=== PATIENT | male | born 1995 | race Caucasian/White ===

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

== ENCOUNTER 2017-05-12 09:43 | Emergency (ER) | payer SELFPAY ==
[~2017-05-12] VITALS: Ht 172.7 cm; Wt 60.0 kg
[~2017-05-12 09:43] MED LIST changes: -CEPH500C3 PO; +FLUO20CA4 PO; -LORTA5 PO
[2017-05-12 09:45] VITALS: BP 120/70; PULSE 60; RESP 20; TEMP 98.5; O2SAT 96
[2017-05-12] MEDS ORDERED: SODIUM CHLORIDE 0.9% FLUSH 10 ML FLUSH IVF PRN (10:30)
[2017-05-12] MEDS ORDERED: cefTRIAXone 250 MG VIAL IM ONE (10:45)
[2017-05-12] MEDS ORDERED: AZITHROMYCIN 250 MG TAB PO ONE (10:45)
[2017-05-12] MEDS ORDERED: ONDANSETRON ODT 4 MG TAB PO/SL ONE (10:45)
[2017-05-12] MEDS ORDERED: LIDOCAINE HCL 1% 50 ML VIAL XX ONE (10:45)
[2017-05-12] MEDS ORDERED: PENICILLIN G BENZATHINE 2,400,000 UNITS/4 ML SYRINGE IM ONE (10:45)
--- NOTE | 2017-05-12 10:50 | PD ---
HPI Chief Complaint: Complaint Time Seen by Provider: 10:15 Travel History International Travel<30 days: No Contact w/Intl Traveler<30days: No Traveled to known affect area: No History of Present Illness HPI Patient is a 21-year-old male presenting to emergency for evaluation of a lesion to his penis. Patient states it's been there for 3 days, he denies any pain but states it feels a little sore area he denies any discharge from his penis, dysuria. He states that he has had unprotected sex with the same partner for the last several months, the relationship is not monogamous. He has no other complaints at this time. PFSH Past Medical History Hx Anticoagulant Therapy: No Bipolar Disorder: Yes Anxiety: Yes Depression: Yes Cancer: No Cardiovascular Problems: Yes (MVP) High Cholesterol: No Chemotherapy: No Cerebrovascular Accident: No Developmental Delay: No Diabetes: No Diminished Hearing: No Endocrine: No Gastrointestinal Disorders: No Genitourinary: No Headaches: No Immune Disorder: No Implanted Vascular Access Dvce: Yes Musculoskeletal: No Neurologic: No Psychiatric: Yes (Hx of treatment for Bipolar Disorder, Psychotic DO and PTSD) Reproductive: No Respiratory: No Immunizations Current: Yes PNEUMOCCOCAL Vaccine (Year): 1 Past Surgical History Abdominal Surgery: No AICD: No Arteriovenous Shunt: No Body Medical Devices: METAL IN LEFT ARM Cardiac Surgery: No Ear Surgery: No Endocrine Surgery: No Eye Surgery: No Genitourinary Surgery: No Gynecologic Surgery: No Insulin Pump: No Joint Replacement: No Oral Surgery: No Pacemaker: No Thoracic Surgery: No Social History Alcohol Use: No Tobacco Use: No (3/4 PPD) Substance Use: Yes ( Marijuana, Ecstacy) Allergies-Medications (Allergen,Severity, Reaction): Coded Allergies: No Known Allergies (Verified , 11/23/16) Reported Meds & Prescriptions Reported Meds & Active Scripts Active No Active Prescriptions or Reported Medications Review of Systems Except as stated in HPI: all other systems reviewed are Neg Skin: Positive Lesions Physical Exam Narrative GENERAL: SKIN: Warm and dry. HEAD: Normocephalic. EYES: No scleral icterus. No injection or drainage. NECK: Supple, trachea midline. No JVD or lymphadenopathy. CARDIOVASCULAR: Regular rate and rhythm without murmurs, gallops, or rubs. RESPIRATORY: Breath sounds equal bilaterally. No accessory muscle use. GASTROINTESTINAL: Abdomen soft, non-tender, nondistended. MUSCULOSKELETAL: No cyanosis, or edema. GENITOURINARY: Circumcised. Testes descended bilaterally without evidence of rotation. 3mm circular lesion to shaft of penis, no erythema. Nontender, no induration No urethral discharge. BACK: Nontender without obvious deformity. No CVA tenderness. Data Data Last Documented VS Vital Signs Date Time Temp Pulse Resp B/P Pulse Ox O2 Delivery O2 Flow Rate FiO2 05/12/17 09:45 98.5 60 20 120/70 96 Room Air Orders Ua Includes Microscopic (05/12/17 10:17) Gc And Chlamydia Pcr (05/12/17 10:17) Sodium Chloride 0.9% Flush (Ns Flush) (05/12/17 10:30) Rapid Plasmin Reagin Screen (05/12/17 10:17) Herpes Simplex Virus Culture (05/12/17 10:17) Penicillin G Benzathine Inj (Bicillin L- (05/12/17 10:45) Azithromycin (Zithromax) (05/12/17 10:45) Ceftriaxone Inj (Rocephin Inj) (05/12/17 10:45) Ondansetron Odt (Zofran Odt) (05/12/17 10:45) Lidocaine 1% Inj (50 Ml) (Xylocaine 1% I (05/12/17 10:45) Labs Laboratory Tests Test 05/12/17 11:15 Urine Color YELLOW Urine Turbidity CLEAR Urine pH 7.0 Urine Specific [place] 1.027 Urine Protein TRACE mg/dL Urine Glucose (UA) NEG mg/dL Urine Ketones NEG mg/dL Urine Occult Blood NEG Urine Nitrite NEG Urine Bilirubin NEG Urine Urobilinogen LESS THAN 2.0 MG/DL Urine Leukocyte Esterase NEG Urine RBC 1 /hpf Urine WBC 3 /hpf Urine Hyaline Casts 1 /lpf Urine Mucus FEW /lpf MDM Medical Decision Making Medical Screen Exam Complete: Yes Emergency Medical Condition: Yes Interpretation(s) Laboratory Tests Test 05/12/17 11:15 Urine Color YELLOW Urine Turbidity CLEAR Urine pH 7.0 Urine Specific [place] 1.027 Urine Protein TRACE mg/dL Urine Glucose (UA) NEG mg/dL Urine Ketones NEG mg/dL Urine Occult Blood NEG Urine Nitrite NEG Urine Bilirubin NEG Urine Urobilinogen LESS THAN 2.0 MG/DL Urine Leukocyte Esterase NEG Urine RBC 1 /hpf Urine WBC 3 /hpf Urine Hyaline Casts 1 /lpf Urine Mucus FEW /lpf Vital Signs Date Time Temp Pulse Resp B/P Pulse Ox O2 Delivery O2 Flow Rate FiO2 05/12/17 09:45 98.5 60 20 120/70 96 Room Air Differential Diagnosis Cancroid versus syphilis versus chlamydia versus gonorrhea versus Narrative Course Patient is a 21-year-old male presenting with 3 days of a lesion to his penis. He has engaged in unprotected sex, relationship is not monogamous. Vital signs are stable. Lesion appears consistent with syphilis, RPR, UA, GC, chlamydia ordered and pending. Patient will be treated empirically at this time with penicillin G benzathine 2.4 M units, Rocephin, azithromycin. Patient is encouraged to follow up with [facility] for further STD screening. He is encouraged to avoid sexual contact with partner until he is notified of test results when they are available. He was advised that he would need to notify partner if his test results are positive. Urinalysis is unremarkable, patient is stable for discharge. Diagnosis Primary Impression: Lesion of penis Additional Impression: Possible exposure to STD Referrals: [facility] Dept. Patient Instructions: General Instructions Additional Instructions: Use barrier protection/condoms when engaging in sexual intercourse to prevent transmission of sexually transmitted diseases Avoid sexual intercourse until you know your lab results Follow-up at the [facility] for further STD screening Return to emergency department for any new or worsening symptoms Med/Other Pt SpecificInfo: No Change to Meds Scripts No Active Prescriptions or Reported Meds Disposition: 01 DISCHARGE HOME Condition: Stable Leigh Schrader May 12, 2017 10:50
[2017-05-12 11:31] LABS: BLOOD, URINE NEG (NEG); GLUCOSE,URINE NEG (NEG); HYALINE CAST, URINE 1 /lpf (RARE); KETONE, URINE NEG (NEG); MUCUS URINE FEW /lpf (OCC); NITRITE,URINE NEG (NEG); URINE COLOR YELLOW (YELLW/STRAW)
[2017-05-12 15:50] LABS: CHLAMYDIA PCR NOT DETECTED (NOT DETECT); NEISSERIA PCR NOT DETECTED (NOT DETECT)
== END 2017-05-12 12:11 | disposition home or self-care (01) ==
LOC: NEPD 09:43
DX: L98.8 Other specified disorders of the skin and subcutaneous tissue (principal); Z20.2 Contact with and (suspected) exposure to infections with a predominantly sexual mode of transmission; Z86.59 Personal history of other mental and behavioral disorders; Z86.79 Personal history of other diseases of the circulatory system
CPT/HCPCS: 81001; 86592; 87255; 87491; 87591; 96372; 99284; J0561; J0696

== ENCOUNTER 2017-08-11 12:18 | Emergency (ER) | payer OTHER ==
[~2017-08-11] VITALS: Ht 172.7 cm; Wt 55.0 kg
[2017-08-11 12:20] VITALS: BP 118/71; PULSE 69; RESP 14; TEMP 98.4; O2SAT 98
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
[2017-08-11] MEDS ORDERED: BACT800T5 PO (14:44)
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
[2017-08-11 14:54] VITALS: BP 109/76; TEMP 97.8
== END 2017-08-11 14:55 | disposition home or self-care (01) ==
LOC: NEPD 12:18
DX: R23.4 Changes in skin texture (principal); M79.602 Pain in left arm; F31.9 Bipolar disorder, unspecified; F43.10 Post-traumatic stress disorder, unspecified
CPT/HCPCS: 99283

== ENCOUNTER 2017-08-21 10:51 | Emergency (ER) | payer OTHER ==
[~2017-08-21] VITALS: Ht 172.7 cm; Wt 58.0 kg
[~2017-08-21 10:51] MED LIST changes: +BACT800T5 PO; -FLUO20CA4 PO
[2017-08-21 11:04] VITALS: BP 123/59; PULSE 55; RESP 16; TEMP 98.6; O2SAT 100
[2017-08-21 11:42] LABS: AUTOMATED NEUTROPHIL # 2.3 TH/MM3 (1.8-7.7); BASOPHIL % 0.5 % (0.0-2.0); EOSINOPHIL # 0.1 TH/MM3 (0-0.4); EOSINOPHIL % 3.3 % (0.0-4.0); HEMATOCRIT 46.1 % (39.0-51.0); HEMO FLAGS DIFF FINAL; LYMPH % 30.9 % (9.0-44.0); LYMPHOCYTE # 1.3 TH/MM3 (1.0-4.8); MEAN CELL VOLUME 92.8 FL (80.0-100.0); MEAN CORPUSCULAR HEMOGLOBIN 31.6 PG (27.0-34.0); MONO % 11.7 % (0.0-8.0); NEUT % 53.6 % (16.0-70.0); PLATELET COUNT 124 TH/MM3 (150-450); RED BLOOD COUNT 4.96 MIL/MM3 (4.50-5.90); RED CELL DISTRIBUTION WIDTH 12.7 % (11.6-17.2); WHITE BLOOD COUNT 4.2 TH/MM3 (4.0-11.0)
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
[2017-08-21 12:06] LABS: ALT (GPT) 25 U/L (9-52); ANION GAP 6 MEQ/L (5-15); AST (GOT) 15 U/L (15-39); BLOOD UREA NITROGEN 13 MG/DL (7-18); CHLORIDE 108 MEQ/L (98-107); GLOMERULAR FILTRATION RATE 118 ML/MIN (>89); POTASSIUM 3.8 MEQ/L (3.5-5.1); SODIUM (NA) 140 MEQ/L (136-145)
[2017-08-21 12:08] LABS: ALKALINE PHOSPHATASE 49 U/L (45-117); TOTAL BILIRUBIN ADULT 0.7 MG/DL (0.2-1.0)
[2017-08-21 12:11] LABS: ALCOHOL LESS THAN 3 MG/DL (0-5)
--- NOTE | 2017-08-21 12:40 | PD ---
History of Present Illness Chief Complaint: Psychiatric Symptoms Time Seen by Provider: 12:30 Travel History International Travel<30 Days: No Contact w/Intl Traveler<30days: No Known affected area: No Legal Status Legal Status: Ex Parte History of Present Illness: 22-year-old male brought in under an ex parte order which contains no specific information regarding the patient. Patient denies suicidal or homicidal ideation, plan or intent. He has no psychotic symptoms and his cognition is intact. He is verbally ness for safety and he is competent to do so. He would like to see an outpatient therapist because he has having trouble getting along with his brother and he left his home. He is looking for a place to live. Right now he stays with friends. He does have a 50-55 hour a week job with [employer]. This physician does not feel he meets criteria for Brown act or inpatient psychiatric hospitalization. [facility] Past Medical History Hx Anticoagulant Therapy: No Bipolar Disorder: Yes Anxiety: Yes Depression: Yes Heart Rhythm Problems: Yes (RECENT VENTRICULAR PROBLEM) Cancer: No Cardiovascular Problems: Yes (MVP) High Cholesterol: No Chemotherapy: No Cerebrovascular Accident: No Developmental Delay: No Diabetes: No Diminished Hearing: No Endocrine: No Gastrointestinal Disorders: No Genitourinary: No Headaches: No Immune Disorder: No Implanted Vascular Access Dvce: Yes Musculoskeletal: No Neurologic: No Psychiatric: Yes (Hx of treatment for Bipolar Disorder, Psychotic DO and PTSD) Reproductive: No Respiratory: No Immunizations Current: Yes Tetanus Vaccination: < 5 Years Influenza Vaccination: Yes PNEUMOCCOCAL Vaccine (Year): 1 Past Surgical History Abdominal Surgery: No AICD: No Arteriovenous Shunt: No Body Medical Devices: METAL IN LEFT ARM Cardiac Surgery: No Ear Surgery: No Endocrine Surgery: No Eye Surgery: No Genitourinary Surgery: No Gynecologic Surgery: No Insulin Pump: No Joint Replacement: No Oral Surgery: No Pacemaker: No Thoracic Surgery: No Other Surgery: Yes (unknown) Psychiatric History Psychiatric History Hx Psychiatric Treatment: Pt has a history of inpatient psychiatric hospitalizations at [facility] and [facility] with last visit occurring in March of 2014. He denied any current outpatient psychiatric follow up but states he does see a counselor at [facility]. He wavers in his decision on whether he would like to be linked with a psychiatrist. Diagnostic history reported to include Bipolar Disorder and Psychotic Disorder. This physician sees no significant clinical objective evidence of bipolar disorder at this time. History of Inpatient Treatment: Yes Guns or firearms in home: No Social History Hx Alcohol Use: No Hx Tobacco Use: No (QUIT 8 MONTHS AGO) Hx Substance Use: No ( Marijuana, Ecstacy in the past ) Substance Use Type: Marijuana, Ecstasy, Other Other Substances Used: HX OF K2 ABUSE Hx of Substance Use Treatment: No Allergies-Medications (Allergen,Severity, Reaction): Coded Allergies: No Known Allergies (Verified , 08/21/17) Reported Meds & Prescriptions Reported Meds & Active Scripts Active No Active Prescriptions or Reported Medications Review of Systems Except as stated in HPI: all other systems reviewed are Neg Mental Status Examination Appearance: Appropriate Consciousness: Alert Orientation: x4 Motor Activity: Normal gait Speech: Unremarkable Language: Adequate Fund of Knowledge: Adequate Attention and Concentration: Adequate Memory: Unremarkable Mood: Appropriate Affect: Appropriate Thought Process & Associations: Intact Thought Content: Appropriate Hallucination Type: None Delusion Type: None Suicidal Ideation: No Suicidal Plan: No Suicidal Intention: No Homicidal Ideation: No Homicidal Plan: No Homicidal Intention: No Insight: Adequate Judgment: Adequate MDM Medical Decision Making Medical Record Reviewed: Yes Assessment/Plan Patient interviewed at bedside, medical record reviewed and case discussed with nurse, Natalya. Patient is felt not to meet criteria for Brown act or involuntary psychiatric hospitalization. He is willing and wanting to seek follow up treatment on an outpatient basis. He denies suicidal or homicidal ideation and is verbally ness for safety. He is competent to do so. Orders Orders Complete Blood Count With Diff (08/21/17 11:07) Comprehensive Metabolic Panel (08/21/17 11:07) Psych Screen (08/21/17 11:07) Drug Screen, Random Urine (08/21/17 11:07) Alcohol (Ethanol) (08/21/17 11:07) Results Vital Signs Date Time Temp Pulse Resp B/P (MAP) Pulse Ox O2 Delivery O2 Flow Rate FiO2 08/21/17 11:42 60 17 08/21/17 11:04 98.6 55 16 123/59 (80) 100 Laboratory Tests Test 08/21/17 11:00 08/21/17 11:10 White Blood Count 4.2 Red Blood Count 4.96 Hemoglobin 15.7 Hematocrit 46.1 Mean Corpuscular Volume 92.8 Mean Corpuscular Hemoglobin 31.6 Mean Corpuscular Hemoglobin Concent 34.0 Red Cell Distribution Width 12.7 Platelet Count 124 Mean Platelet Volume 9.0 Neutrophils (%) (Auto) 53.6 Lymphocytes (%) (Auto) 30.9 Monocytes (%) (Auto) 11.7 Eosinophils (%) (Auto) 3.3 Basophils (%) (Auto) 0.5 Neutrophils # (Auto) 2.3 Lymphocytes # (Auto) 1.3 Monocytes # (Auto) 0.5 Eosinophils # (Auto) 0.1 Basophils # (Auto) 0.0 CBC Comment DIFF FINAL Differential Comment Blood Urea Nitrogen 13 Creatinine 0.83 Random Glucose 86 Total Protein 7.0 Albumin 4.3 Calcium Level 8.5 Alkaline Phosphatase 49 Aspartate Amino Transf (AST/SGOT) 15 Alanine Aminotransferase (ALT/SGPT) 25 Total Bilirubin 0.7 Sodium Level 140 Potassium Level 3.8 Chloride Level 108 Carbon Dioxide Level 26.0 Anion Gap 6 Estimat Glomerular Filtration Rate 118 Ethyl Alcohol Level LESS THAN 3 Urine Opiates Screen NEG Urine Barbiturates Screen NEG Urine Amphetamines Screen NEG Urine Benzodiazepines Screen NEG Urine Cocaine Screen NEG Urine Cannabinoids Screen POS Diagnosis Primary Impression: Adjustment disorder with anxiety Prescriptions No Active Prescriptions or Reported Meds Everett Jacobsen MD Aug 21, 2017 12:40
[2017-08-21 13:06] VITALS: BP 124/77; TEMP 97.8
== END 2017-08-21 13:10 | disposition home or self-care (01) ==
LOC: NEPC 10:51
DX: F43.22 Adjustment disorder with anxiety (principal); F31.9 Bipolar disorder, unspecified; F12.90 Cannabis use, unspecified, uncomplicated
CPT/HCPCS: 80053; 80307; 85025; 99283